=== PATIENT | female | born 1990 | race Asian ===

== ENCOUNTER 2018-09-28 11:10 | Outpatient (CLI) | payer MEDICAID ==
--- NOTE | 2018-09-28 15:19 | Ultrasound Report ---
Reason: UNSPECIFIED LUMP IN THE LEFT BREAST,UNPECIFIED CRYSTAL Procedure Date: 09/28/2018 Accession Number: [id number] / [id number] Procedure: US - Breast Unilateral Limited CPT Code: FULL RESULT: EXAM: Breast Unilateral Limited DATE: 09/28/2018 12:15 PM CLINICAL HISTORY: Palpable lump per PCP exam in the lower outer left breast. 27-year-old with no significant family history. TECHNIQUE: Real-time ultrasound was performed by both technologist and the radiologist. COMPARISON: Baseline exam. FINDINGS: At 4:30 o'clock, 5 cm from the nipple, there is a hypoechoic, parallel orientation, circumscribed margin, hypoechoic minimally vascular mass measuring 12 x 10 x 9 mm in dimension corresponding to palpable lump per PCP exam. 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 Probably benign. BI-RADS Category 3. Six-month follow-up surveillance ultrasound is recommended to ensure expected imaging stability.
== END 2018-09-28 11:11 | disposition home or self-care (01) ==
LOC: DI 11:10
PROVIDERS: ATTEND Nurse Practitioner Family
DX: N63.23 Unspecified lump in the left breast, lower outer quadrant (principal)
CPT/HCPCS: 76642